=== PATIENT | female | born 1960 | race Caucasian/White ===

== ENCOUNTER 2018-01-09 07:36 | Outpatient (REF) | payer BC, SELFPAY ==
[2018-01-09 13:03] LABS: ALT 67 U/L (12-78); AST 80 U/L (15-37); Albumin 4.2 g/dL (3.4-5.0); Alkaline Phosphatase 73 U/L (46-116); BUN 17 mg/dL (7-18); Bilirubin, Total 1.8 mg/dL (0.2-1.0); CREATININE 0.66 mg/dL (0.55-1.02); Calcium 9.4 mg/dL (8.5-10.1); Chloride 103 mmol/L (98-107); Cholesterol 184 mg/dL (50-200); Glucose 197 mg/dL (70-100); HDL Cholesterol 34 mg/dL (40-60); LDL CHOLESTEROL 117 mg/dL (<100); Sodium 141 mmol/L (136-145); Total Protein 7.2 g/dL (6.4-8.2); Triglyceride 250 mg/dL (30-150)
[2018-01-09 13:16] LABS: Microalb ug/mg Crea 31.5 ug/mg Cr
== END 2018-01-09 07:56 ==
LOC: NCHCN 07:36
PROVIDERS: PCP Nurse Practitioner; Visit Provider Nurse Practitioner
DX: I10 Essential (primary) hypertension (principal); E11.9 Type 2 diabetes mellitus without complications; E78.5 Hyperlipidemia, unspecified
CPT/HCPCS: 80053; 80061; 83721; 82043; 82570

== ENCOUNTER 2018-11-17 01:10 | Outpatient (CLI) | payer BC, SELFPAY ==
--- NOTE | 2018-11-17 13:29 | DI.MAMMO_ITS ---
SYMPTOM/DIAGNOSIS: SCREENING, Z12.39 MAMMOGRAMS: Mammograms were interpreted according to the usual protocol including computer analysis with CAD system, tomosynthesis and C view imaging. The breast tissue is of moderate radiodensity. There is no evidence of a mass. There are no suspicious calcifications and there has been no significant interval change when compared with prior images. SUMMARY: No evidence of malignancy, category 1. Yearly screening mammography is recommended. Breast density, Category B,. SA ASSESSMENT OF FINDINGS: Negative. Category 1. Patient will receive a letter notifying them of these results. BI-RADS category B. There are scattered areas of fibroglandular density.
== END 2018-11-17 01:30 ==
PROVIDERS: PCP Nurse Practitioner; Visit Provider Nurse Practitioner
DX: Z12.31 Encounter for screening mammogram for malignant neoplasm of breast (principal)
CPT/HCPCS: 77063; 77067

== ENCOUNTER 2019-01-10 09:20 | Outpatient (REF) | payer BC, SELFPAY ==
[2019-01-10 13:06] LABS: COMMENT (LAB VIEW ONLY) 118.85 mg/dL; Microalb ug/mg Crea 51.1 ug/mg Cr
[2019-01-10 13:21] LABS: ALT 50 U/L (14-59); AST 56 U/L (15-37); Alkaline Phosphatase 77 U/L (46-116); Anion Gap 10.2 mmol/L (3-11); BUN 12 mg/dL (7-18); Bilirubin, Total 2.6 mg/dL (0.2-1.0); CO2 26.8 mmol/L (21.0-32.0); CREATININE 0.64 mg/dL (0.55-1.02); Calcium 9.2 mg/dL (8.5-10.1); Calculated LDL 118 mg/dL; Chloride 104 mmol/L (98-107); Cholesterol 195 mg/dL (50-200); Glucose 247 mg/dL (70-100); HDL Cholesterol 30 mg/dL (40-60); Sodium 141 mmol/L (136-145); Total Protein 7.2 g/dL (6.4-8.2); Triglyceride 239 mg/dL (30-150)
== END 2019-01-10 09:40 ==
LOC: NCHCN 09:20
PROVIDERS: PCP Nurse Practitioner; Visit Provider Nurse Practitioner
DX: E11.9 Type 2 diabetes mellitus without complications (principal); I10 Essential (primary) hypertension; E78.5 Hyperlipidemia, unspecified
CPT/HCPCS: 80053; 80061; 82043; 82570

== ENCOUNTER 2019-05-03 08:25 | Outpatient (REF) | payer BC, SELFPAY ==
[2019-05-03 12:28] LABS: ALT 53 U/L (14-59); AST 67 U/L (15-37); Albumin 4.1 g/dL (3.4-5.0); Alkaline Phosphatase 83 U/L (46-116); Bilirubin, Direct 0.33 mg/dL (0.00-0.20); Total Protein 7.3 g/dL (6.4-8.2)
[2019-05-03 13:52] LABS: Hemoglobin A1C 7.8 % (3.8-5.6)
== END 2019-05-03 08:45 ==
LOC: NCHCN 08:25
PROVIDERS: PCP Nurse Practitioner; Visit Provider Nurse Practitioner
DX: I10 Essential (primary) hypertension (principal); E11.9 Type 2 diabetes mellitus without complications
CPT/HCPCS: 80076; 83036

== ENCOUNTER 2019-11-14 09:23 | Outpatient (CLI) | payer BC, SELFPAY ==
--- NOTE | 2019-11-16 10:34 | ZIOP_ITS ---
Date of service: 11/16/19 Time of Service: 10:34 ZIO Patch Financial Assistance Specialist Referring Provider:: Hero Indications:: Palpitations Note: This is a 2-week ZIO patch ordered for the indication of palpitations. ?The patient was in normal sinus rhythm for majority recording with an average heart rate of 91 bpm ([phone]) ?Patient had no episodes of supraventricular tachycardia nor ventricular tachycardia. ?There were occasional (2%) premature ventricular contractions. ?There are no episodes of atrial fibrillation, no pauses grade 3 seconds no evidence of high degree heart block.
--- NOTE | 2019-11-16 12:30 | W.HOLTRPT ---
Date of service: 11/16/19 Time of Service: 12:30 Holter Monitor Report Referring Provider:: Sunita Indications:: Palps Holter Monitor Note: Note: This is a 48-hour Holter monitor ordered for the indication of palpitations. ?The patient was in normal sinus rhythm for majority recording with an average heart rate of 91 bpm ([phone]) ?Patient had no episodes of supraventricular tachycardia nor ventricular tachycardia. ?There were occasional (2%) premature ventricular contractions. ?There are no episodes of atrial fibrillation, no pauses grade 3 seconds no evidence of high degree heart block.
== END 2019-11-14 09:43 ==
PROVIDERS: PCP Nurse Practitioner; Visit Provider Nurse Practitioner
DX: R00.2 Palpitations (principal); I49.3 Ventricular premature depolarization
CPT/HCPCS: 93225

== ENCOUNTER 2019-11-16 08:52 | Outpatient (CLI) | payer BC, SELFPAY | END 2019-11-16 09:12 | PROVIDERS: PCP Nurse Practitioner; Visit Provider Nurse Practitioner | DX: R00.2 Palpitations (principal) | CPT/HCPCS: 93226 ==

== ENCOUNTER 2019-11-19 01:16 | Outpatient (CLI) | payer BC, SELFPAY ==
--- NOTE | 2019-11-19 10:01 | DI.RAD_ITS ---
EXAM: XR CHEST 2V PA LATERAL CLINICAL HISTORY: COUGH,R05 TECHNIQUE: COMPARISON: CR ABD FLAT UPRIGHT PA CHEST from 08/17/2013 CR ABD FLAT UPRIGHT PA CHEST from 04/06/2014 FINDINGS: Heart is not enlarged. The danny appear enlarged bilaterally, this is a new finding in comparison wit h prior chest film of August 2013. The lungs are clear. No pleural effusion seen. IMPRESSION: Findings suggesting bilateral hilar enlargement, this could be on the basis of adenopathy versus pulm onary arterial enlargement. Additional evaluation with contrast-enhanced CT suggested to evaluate th is finding. RADIATION DOSE DELIVERED: Total DLP
== END 2019-11-19 01:36 ==
PROVIDERS: PCP Nurse Practitioner; Visit Provider Nurse Practitioner
DX: R05 Cough (principal)
CPT/HCPCS: 71046

== ENCOUNTER 2019-12-06 04:02 | Outpatient (CLI) | payer BC, SELFPAY ==
--- NOTE | 2019-12-27 08:27 | W.ZIOMONITOR ---
Date of service: 12/27/19 Time of Service: 08:27 14 Day Chairman Of The Board Referring Provider:: Sunita Indications:: palps Note: This is a 14-day remote monitor ordered for indication of palpitations. ?Patient was in normal sinus rhythm for the majority of the recording with an average heart rate of 94 bpm. ?There were no episodes of supraventricular tachycardia nor any episodes of ventricular tachycardia. ?There were occasional (2%) ventricular ectopic beats. ?There were no episodes of atrial fibrillation, no pauses greater than 3 seconds and no evidence of high degree heart block. ?There were over 60 patient triggered events all of which corresponded to sinus rhythm and sinus tachycardia and an occasional singular PVC.
== END 2019-12-06 04:22 ==
PROVIDERS: PCP Nurse Practitioner; Visit Provider Nurse Practitioner
DX: R00.2 Palpitations (principal)
CPT/HCPCS: 0296T

== ENCOUNTER 2020-01-07 02:17 | Outpatient (CLI) | payer BC, SELFPAY ==
--- NOTE | 2020-01-07 | DI.CT_ITS ---
EXAM: CT CHEST W CLINICAL HISTORY: F/U ABNL CHEST XR,R91.8,COUGH,BILAT HILAR ENLARGEMENT TECHNIQUE: Imaging Protocol: Axial computed tomography images with coronal and sagittal reformatted images were created and reviewed CONTRAST MATERIAL: Intravenous: Omnipaque 350 Contrast volume:70 mL. COMPARISON: CR XR CHEST 2V PA LATERAL from 11/19/2019 FINDINGS: Tracheobronchial tree: Patent where visualized. Mediastinum and Darlyn: No dominant adenopathy or fluid collection. Small hiatal hernia. There is an enlarged heterogeneous right lobe of the thyroid gland. Multiple hypodense masses are seen in both l obes of the thyroid gland. Nonemergent thyroid ultrasound is recommended for further evaluation. Pulmonary parenchyma: No consolidation or dominant measurable mass. No architectural distortion. Pleura: No effusion or pneumothorax. Heart: Cardiomegaly. No coronary artery calcifications are seen. No pericardial effusion. Mild aort ic valvular calcification. Aorta: Thoracic aorta non-dilated. Atherosclerosis. Pulmonary arteries: There is prominence of the pulmonary arteries raising the question of pulmonary a rtery hypertension. Upper abdomen: Hepatic steatosis. Status post cholecystectomy. No biliary ductal dilatation. Non- obstructing 3 mm stone in the superior pole of the left kidney. Lymph nodes: Within normal limits. Bones: Right convex scoliosis. Hemangioma in the T10 vertebral body. Soft tissues: Unremarkable. IMPRESSION: 1. Enlarged pulmonary arteries suspicious for pulmonary artery hypertension. 2. No evidence of thoracic adenopathy. 3. Enlarged heterogeneous thyroid gland. Nonemergent thyroid ultrasound is recommended for further e valuation. 4. Hepatic steatosis. Left nephrolithiasis. RADIATION DOSE DELIVERED: 337.71mGy.cm Total DLP DATA REPOSITORY: All CT scans at this facility are submitted to the National Radiology Data Registry (NRDR) Dose Index Registry (DIR) with the [employer] (ACR). RADIATION OPTIMIZATION: All CT scans at this facility use at least one of these dose optimization te chniques: automated exposure control; mA and/or kV adjustment per patient size (includes targeted exa ms where dose is matched to clinical indication); or iterative reconstruction.
[2020-01-07 13:10] LABS: CREATININE 0.73 mg/dL (0.55-1.02)
[2020-01-07] MEDS: Omnipaque 350 MG/ML 100 ML BTL IV (13:23)
== END 2020-01-07 02:37 ==
PROVIDERS: PCP Nurse Practitioner; Visit Provider Nurse Practitioner
DX: N25.9 Disorder resulting from impaired renal tubular function, unspecified (principal); K76.0 Fatty (change of) liver, not elsewhere classified; E04.9 Nontoxic goiter, unspecified; N20.0 Calculus of kidney; R91.8 Other nonspecific abnormal finding of lung field
CPT/HCPCS: 71260; 82565; J3490

== ENCOUNTER 2020-03-05 01:23 | Outpatient (CLI) | payer BC, SELFPAY ==
--- NOTE | 2020-03-05 | DI.US_ITS ---
EXAM: US THYROID CLINICAL HISTORY: ENLARGED THYROID,E04.9 TECHNIQUE: Ultrasound performed using standard protocol. COMPARISON: US SONOHYSTERO/HYSTOGRAM W BIOPSY from 09/19/2015 FINDINGS: Thyroid ultrasound was performed according to the usual protocol. Thyroid gland is markedly heteroge neous. Right thyroid lobe measures 56 x 22 x 25 millimeters and left lobe measures 41 x 13 x 13 mill imeters. There are multiple bilateral thyroid cysts. There is a 41 x 25 x 15 millimeter in diameter this solid mass the right thyroid lobe upper pole, this is isoechoic and wider than tall with smooth margins and no echogenic foci. This is a TI-RADS TR 3 lesion, fine needle aspiration recommended fo r lesions greater than 2.5 cm in diameter. No additional large suspicious lesion identified. Multiple small TR 3 lesions are identified, none g reater than 12 millimeters in diameter. IMPRESSION: Multinodular goiter, dominant mildly suspicious lesion is identified in the upper pole of the right t hyroid lobe, fine needle aspiration recommended. This is a TI-RADS TR 3 lesion measuring 4.1 cm in g reatest diameter. DATA REPOSITORY:
--- NOTE | 2020-03-05 10:11 | DI.US_ITS ---
APPROVED REPORT EXAM: Comprehensive 2D, Doppler, and color-flow Echocardiogram Patient Location: Out-Patient Library Cataloging Technician: Sherry Recinos RDCS (AE) Indications: Pulmonary Hypertension Other Information Study Quality: Good Conclusion Normal left ventricular chamber size and wall thickness. Estimated ejection fraction is 60%. Wall m otion is normal Normal right ventricular size and systolic function Both atria are normal in size There are no structural valvular abnormalities Trace mitral, tricuspid, and pulmonic regurgitation Estimated right ventricular systolic pressure is normal. There is no evidence of pulmonary hypertens ion Wall motion Left Ventricle The left ventricle is normal size. The left ventricular systolic function is normal. The left ventric ular ejection fraction is within the normal range. There is normal left ventricular wall thickness. T here is normal LV segmental wall motion. There is no ventricular septal defect visualized. LVEF is 60 %. Right Ventricle The right ventricle is normal size. The right ventricular systolic function is normal. The RVSP is 25 .8 mmHg. Atria The left atrium size is normal. The right atrium size is normal. The interatrial septum is intact wit h no evidence for an atrial septal defect. Aortic Valve The aortic valve is normal in structure. Aortic valve is trileaflet. There is no aortic valvular sten osis. No aortic regurgitation is present. Mitral Valve The mitral valve is normal in structure. No evidence of mitral valve stenosis. Trace mitral regurgita tion. Tricuspid Valve The tricuspid valve is normal in structure. There is no tricuspid valve stenosis. Trace tricuspid reg urgitation. Pulmonic Valve The pulmonary valve is normal in structure. There is no pulmonic valvular stenosis. Trace pulmonic re gurgitation. Great Vessels The aortic root is normal in size. The ascending aorta is normal in size. Aortic arch is normal in ca liber. IVC is normal in size and collapses >50% with inspiration. Pericardium There is no pericardial effusion. 2D Dimensions IVSD d PLAX 0.95 cm F: 0.6-1.0 LV Vol A2C d MOD 87.7 mL LVPW d PLAX 0.94 cm F: 0.6 - 1.0 LV Vol A4C d MOD 91.9 mL LVID d PLAX 4.25 cm F: 3.8 - 5.2 LA vol/ BSA A2C s A-L 21.1 mL/m2 LVDs 2.85 cm F: 2.2 - 3.5 LA vol/ BSA A4C s A-L 21.9 mL/m2 Ao Root d 2.52 cm F: 2.7 - 3.3 LA Vol/ BSA Biplane s A-L 21.5 mL/m2 RA Area A4C 11.11 cm2 LA Area A4C s MOD 13.85 cm2 RA Vol/ BSA A4C s A-L 15.7 mL/m2 LA Area A2C s MOD 13.55 cm2 Ao Asc Diam d 2.82 cm F: 2.3 - 3.1 LV EF A4C MOD 60.2 % LV EF Teichholz 61.3 % LV EF A2C MOD 59.2 % LVEF (Bridges's) 59.66 % F: 54 - 74 LV EF Biplane MOD 59.7 % LV Volume 73.50 mL F: 46 - 106 SV 53.50 mL LV Volume Index 47.11 mL/m2 F: 29 - 61 SV Index 34.20 mL/m2 LV Vol Biplane MOD 89.7 mL FS 32.55 % M-Mode TAPSE 2.62 cm (M/F) >1.7 LV Diastology MV E' medial 0.071 (>0.07 m/s) E/A Ratio 1.2 LV E/e MED 13.85 (<14) MV E Vmax 0.99 (0.4-1.3 m/s) MV E' lateral 0.107 (>0.1 m/s) MV A Vmax 0.85 (0.4-1.3 m/s) LV E/e LAT 9.30 (<14) MV E/A Ratio 1.11 MV E/E' medial 13.89 MV E/E' lateral 9.31 Aortic Valve LVOT Area 3.14 cm2 AoV Area Vmax 2.23 cm2 LVOT Vmax 0.97 m/s AoV Area/ BSA (Vmax) 1.43 cm2/m2 LVOT Mean Sid. 0.67 m/s POLI Mean Sid. 2.07 cm2 LVOT Peak Grad 3.7 mmHg POLI Mean Sid. Index 1.33 cm2/m2 LVOT Mean Grad 2.1 mmHg LVOT VTI 0.229 m LVOT Diam s 1.95 cm AoV Vmax 1.36 m/s Velocity Ratio 0.71 AoV Mean Sid. 1.01 m/s AoV Peak Grad 7.4 mmHg LVOT SV 71.93 mL AoV Mean Grad 4.5 mmHg AoV VTI 0.317 m AoV Area VTI 2.27 cm2 AoV Area/ BSA (VTI) 1.45 cm/m2 Mitral Valve MV DT 188 (160-240 msec) MV PHT 54 msec MV Area PHT 4.04 cm2 MV VTI 0.286 m MV VTI Annulus 0.280 m MV Area VTI 2.46 (4.0-6.0 cm2) Pulmonary Valve PV Vmax 0.79 (0.5-1.5 m/s) RVOT Peak Gr. 1.38 mmHg PV Peak Grad 2.5 mmHg RVOT Mean Gr. 0.70 mmHg PV Mean Grad 1.4 mmHg RVOT VTI 0.149 m PV VTI 0.190 m RVOT Vmax 0.59 m/s Tricuspid Valve TR Peak Grad 22.7 mmHg TR Vmax 2.39 m/s RA Pressure 3.00 mmHg RVSP (TR) 25.8 mmHg
== END 2020-03-05 01:43 ==
PROVIDERS: PCP Nurse Practitioner; Visit Provider Nurse Practitioner
DX: I08.1 Rheumatic disorders of both mitral and tricuspid valves (principal); E04.2 Nontoxic multinodular goiter
CPT/HCPCS: 76536; 93306

== ENCOUNTER 2020-04-10 15:26 | Outpatient (REF) | payer BC, SELFPAY ==
[2020-04-10 14:00] LABS: ALT 77 U/L (14-59); AST 82 U/L (15-37); Albumin 3.9 g/dL (3.4-5.0); Alkaline Phosphatase 94 U/L (46-116); Anion Gap 11.4 mmol/L (3-11); BUN 18 mg/dL (7-18); Bilirubin, Total 3.3 mg/dL (0.2-1.0); CO2 27.6 mmol/L (21.0-32.0); CREATININE 0.8 mg/dL (0.55-1.02); Calcium 9.5 mg/dL (8.5-10.1); Calculated LDL 135 mg/dL (<100); Chloride 100 mmol/L (98-107); Cholesterol 218 mg/dL (<200); Glucose 407 mg/dL (74-106); HDL Cholesterol 35 mg/dL (40-60); Potassium 4.4 mmol/L (3.5-5.1); Sodium 139 mmol/L (136-145); TSH (W/Ref FT4) 1.49 uIU/mL (0.36-3.74); Total Protein 7.4 g/dL (6.4-8.2); Triglyceride 240 mg/dL (<150)
[2020-04-10 14:41] LABS: COMMENT (LAB VIEW ONLY) 65.31 mg/dL; Microalb ug/mg Crea 20.5 ug/mg Cr
== END 2020-04-10 15:27 | disposition home or self-care (01) ==
LOC: NCHCN 15:26
PROVIDERS: PCP Nurse Practitioner; Visit Provider Nurse Practitioner
DX: E11.9 Type 2 diabetes mellitus without complications (principal); K76.0 Fatty (change of) liver, not elsewhere classified; E04.9 Nontoxic goiter, unspecified; E78.5 Hyperlipidemia, unspecified; I10 Essential (primary) hypertension
CPT/HCPCS: 80053; 80061; 82043; 82570; 84443

== ENCOUNTER 2020-05-05 02:14 | Outpatient (CLI) | payer BC, SELFPAY ==
[2020-05-05] MEDS: Normal Saline Flush 10 ML SYR IVP (10:46)
[2020-05-05] MEDS: Gadoterate meglumine 20 ML VIAL 12 ML IVP (10:47)
--- NOTE | 2020-05-05 11:05 | DI.MRI_ITS ---
EXAM: MR PELVIS WO/W CLINICAL HISTORY: COCCYDYNIA,M53.3,? FX OR NEW LESIONS,H/O ENDOMETRIAL CA AND RADIATION TECHNIQUE: Multiplanar multisequence MRI of Pelvis was performed. CONTRAST MATERIAL: IV Contrast: 12 mL of Dotarem contrast administered. COMPARISON: CT ABD PELVIS WITH CONTRAST from 03/26/2017 FINDINGS: Bones: There is no fracture or contusion pattern. No significant joint effusion or labral injury is present. There is a 2.3 x 2 cm lesion in the right S2 segment of the sacrum. This area shows mild en hancement following contrast administration. There is otherwise normal marrow signal. The SI joints and symphysis pubis are well maintained. Musculotendinous structures: Musculotendinous structures demonstrate no abnormality. Intrapelvic str uctures demonstrate no significant abnormality. Soft tissues: There are 2 enhancing masses in the left pelvis. The largest measures 2.7 cm transvers e by 5.0 cm AP by 5.0 cm craniocaudad. It appears to compress and displace the obturator internus mu scle. The muscle shows normal signal and size. The 2nd lesion is posterior and slightly superior, c loser to the sciatic notch and measures 2.5 x 2.1 cm. It appears to displace and compress the adjace nt nerves. IMPRESSION: 1. Two enhancing lesions in the left pelvis as described above. Findings raise a question of metasta tic disease. Adenopathy should also be considered. CT scan of the abdomen and pelvis should be cons idered to evaluate for extent of disease. 2. A 2.3 x 2 cm lesion in the S2 segment of the sacrum suspicious for metastatic deposit. A whole-juan dy bone scan should be considered for further evaluation. DATA REPOSITORY:
== END 2020-05-05 02:34 ==
PROVIDERS: PCP Nurse Practitioner; Visit Provider Nurse Practitioner
DX: M53.3 Sacrococcygeal disorders, not elsewhere classified (principal); R93.5 Abnormal findings on diagnostic imaging of other abdominal regions, including retroperitoneum; Z85.42 Personal history of malignant neoplasm of other parts of uterus
CPT/HCPCS: 72197

== ENCOUNTER 2020-09-25 23:40 | Emergency (ER) | payer BC, SELFPAY ==
[2020-09-25 23:46] VITALS: BP 174/77; PULSE 95; RESP 18; TEMP 36.6; O2SAT 96
--- NOTE | 2020-09-25 23:55 | ED.GENADUL_ITS ---
Discharge Plan Disposition Patient Disposition: HOME Condition: Good Discharge Details Clinical Impression: Sacral pain Primary Care Provider: Marla Dorsey ED Provider: Jhoan Charles Home Meds and New Rx's Prescriptions: Continued metoprolol succinate 50 mg tablet extended release 24 hr 50 mg PO DAILY RF: 0 Januvia 25 mg tablet 25 mg PO DAILY RF: 0 methylphenidate HCl [Concerta] 18 mg tablet extended release 24hr 18 mg PO DAILY RF: 0 lisinopril 10 mg tablet 10 mg PO DAILY RF: 0 pravastatin 20 mg tablet 20 mg PO QHS RF: 0 lorazepam 0.5 MG tablet 0.5 mg PO PRN PRNRF: 0 hydrocodone-acetaminophen [Vicodin] 1 EACH tablet 1 tab PO PRN PRNRF: 0 Discharge Instructions Additional Instructions: At this time we have elected to hold off on imaging and focus on your pain. Please take the [place] pills as needed for pain. Please follow-up closely with your family doctor and oncologist for continued management of your malignancy and pain. If you notice any worsening of your symptoms, or any new symptoms such as vomiting, diarrhea, fever, chills, shortness of breath, chest pain, numbness, weakness, or fainting , please return immediately to the emergency department for reevaluation. Please follow up with your primary care provider as soon as possible for reassessment and reevaluation. As always, it was a pleasure participating in your medical care today. Referrals: Marla Dorsey [Primary Care Provider] - Medical Decision Making 60-year-old female with a past medical history of pelvic malignancy, GERD, endometrial cancer, hyperlipidemia, hypertension, presents today for sacral pain. Patient states that she has chronic sacral pain secondary to the nature of the malignancy. However she states that over the last 12 hours it has become notably worse. She does use narcotics to manage her pain usually, however she is out of her current prescription, and has not been able to manage it with Tylenol or Motrin. She denies any rectal discharge, any fever or chills, any numbness tingling or weakness. She does have radiation therapy upcoming shortly. She denies any other complaints at this time. Symptoms are made worse with sitting on her buttock. Symptoms are not made worse with bowel or bladder movements. Physical exam demonstrates no acute lesions, no reproducible tenderness on the sacrum, no rectal abnormality. No signs of cauda equina syndrome whatsoever. No significant abdominal tenderness to suggest an acute surgical abdomen. I did discuss imaging options for the patient and at this time through notable discussion, weighing the risks and benefits, and a shared decision making process the patient has refused imaging at this time. Patient is of an appropriate age to make decisions. The patient is of sound mind, appears clinically sober, and has capacity to make decisions by my clinical exam. Respecting the patient's wishes we will hold off on imaging, as both she and her significant other specifically feel that this is an acute exacerbation of chronic pain and not a new etiology requiring further work-up. Patient states specifically that her primary goal is just for pain treatment for this evening so that she can sleep and then follow-up with her PCP tomorrow for a new medication prescription for pain. Respecting the patient's wishes we will move forward with pain control. We will give a dose of IM morphine, and 4 [place] tablets to go home with. In terms symptoms at this time are inconsistent with an acute surgical abdominal pathology, rectal prolapse, perirectal abscess, UTI. Discussed red flags which to return. I have extensively reviewed the treatment plan and discharge instructions with the patient and their family. I have addressed all patient concerns at this time. The patient and family was made aware of what symptoms to monitor for that would [facility] Discussed the plan with the patient and family, they demonstrate verbal understanding and agreement with our assessment and plan at this time. The documentation in this chart was dictated using [employer] dictation software. Please excuse any dictation errors. HPI General Date/Time Provider Initiated Documentation: 09/25/20 23:42 . HPI Narrative: 60-year-old female with a past medical history of pelvic malignancy, GERD, endometrial cancer, hyperlipidemia, hypertension, presents today for sacral pain. Patient states that she has chronic sacral pain secondary to the nature of the malignancy. However she states that over the last 12 hours it has become notably worse. She does use narcotics to manage her pain usually, however she is out of her current prescription, and has not been able to manage it with Tylenol or Motrin. She denies any rectal discharge, any fever or chills, any numbness tingling or weakness. She does have radiation therapy upcoming shortly. She denies any other complaints at this time. Symptoms are made worse with sitting on her buttock. Symptoms are not made worse with bowel or bladder movements. Related Data Home Medications Medication Instructions Recorded Confirmed hydrocodone-acetaminophen [Vicodin] 1 tab PO PRN PRN 06/25/16 08/20/19 lorazepam 0.5 mg PO PRN PRN 06/25/16 08/20/19 lisinopril 10 mg tablet 10 mg PO DAILY 05/23/19 08/20/19 methylphenidate HCl 18 mg 18 mg PO DAILY 05/23/19 08/20/19 tablet,extended release 24 hr metoprolol succinate 50 mg 50 mg PO DAILY 05/23/19 08/20/19 tablet,extended release 24 hr pravastatin 20 mg tablet 20 mg PO QHS 05/23/19 08/20/19 sitagliptin 25 mg tablet 25 mg PO DAILY 05/23/19 08/20/19 Allergies Allergy/AdvReac Type Severity Reaction Status Date / Time Sulfa (Sulfonamide Allergy Severe Anaphylaxsi Unverified 09/24/19 10:47 Antibiotics) s fluconazole [From Diflucan] Allergy Unverified 09/24/19 10:47 Penicillins AdvReac Severe severe Unverified 09/24/19 10:47 yeast infections metronidazole AdvReac Mild Skin Rash Unverified 09/24/19 10:47 venlafaxine AdvReac Unknown Unverified 09/24/19 10:47 General Stated Complaint: Orthopedic CHANELLE: 4 Review of Systems All systems reviewed & are unremarkable except as noted in HPI and below PFSH Medical History ADD (attention deficit disorder) Anxiety Chronic neck pain Cubital tunnel syndrome on left De Quervain's tenosynovitis, right Injection: 09/24/2019 Diabetes Endometrial adenocarcinoma Endometrial cancer Stage 1B. Grade2. S/P RALH, BSO, sentinel lymph node bx. 12/2015. Will have cuff radiation thru [facility]. GERD (gastroesophageal reflux disease) Glucose intolerance (impaired glucose tolerance) History of IBS Hx of diverticulitis of colon Hyperlipidemia Hypertension Low back pain Migraine Osteoarthritis Shoulder impingement Skin lesion of face Surgical History Cholecystectomy Hysterectomy, Laproscopic (12/30/15) RALH, BSO, [place] lymph node bx. Pt will have cuff brachytherapy. Ligation of fallopian tube Family History Grandmother Essential hypertension Social History Smoking/Tobacco Use Status: Never Smoking risk assessment performed?: Yes Alcohol Intake: current Alcohol Intake frequency: a few times a month Drug use: Never Household members: spouse Housing: house Number of Children: 4 current occupation: Therapist Pets and animals: No What is your relationship status?: Panel score (0-1 are the most socially isolated patients): 1 What type of physical activity do you participate in: walking Seatbelt use: always Do you feel safe in your relationship?: Yes Exam Narrative Exam Narrative: 1.Const: Well-nourished, Well-developed, appearing stated age 2.Eyes: PERRL, no conjunctival injection, and symmetrical lids. 3.ENT: Atraumatic external nose and ears. Moist MM. Neck: Symmetric, trachea midline, No thyromegaly. 4.CVS: +S1/S2, No murmurs or gallops. Peripheral pulses 2+ and equal in all extremities. Brisk capillary refill in all extremities. 5.RESP: Unlabored respiratory effort. Clear to auscultation bilaterally. No wheezes rales or rhonchi 6.GI: Soft, Nontender/Nondistended, No hepatosplenomegaly. No guarding or rebound. 7.MSK: Normocephalic/Atraumatic, Extremities w/o deformity or ttp No cyanosis or clubbing, Normal movement of all extremities. Palpation of the rectum demonstrates no rectal tenderness. No mass redness or swelling in the rectal region. Palpation of the sacrum demonstrates no focal tenderness. No skin lesions. No bleeding or ulcer. No midline tenderness to palpation over the LS spine. Normal ROM in flexion, extension, side bend, and rotation. Patient has +5 out of 5 strength in the lower extremities in dorsiflexion and plantarflexion, knee flexion and extension, hip flexion and extension. Normal strength for dorsiflexion and plantar flexion of the great toe bilaterally. There is +2 over 2 dorsalis pedis pulses bilaterally. There is normal sensation to the skin with light touch at the foot, knee, and hip. Normal saddle sensation. Good sensation over the deep sural nerve area bilaterally. Rectal exam is noted above. 8.Skin: Warm, Dry. No rashes or lesions. 9.Neuro: underwriting account representative II-XII grossly intact. Sensation grossly intact, no focal neurologic deficits. 10.Psych: (AAO) x3. Appropriate mood and affect Course Vital Signs Vital signs: Vital Signs Temperature 36.6 C 09/25/20 23:46 Pulse 95 H 09/25/20 23:46 Respiratory Rate 18 09/25/20 23:46 Blood Pressure 174/77 H 09/25/20 23:46 Pulse Oximetry 96 09/25/20 23:46 Temperature 36.6 C 09/25/20 23:46 Temperature Source Temporal Artery Scan 09/25/20 23:46 Pulse 95 H 09/25/20 23:46 Respiratory Rate 18 09/25/20 23:46 Respiratory Effort Non-Labored 09/25/20 23:52 Blood Pressure 174/77 H 09/25/20 23:46 Pulse Oximetry 96 09/25/20 23:46 Oxygen Delivery Method Room Air 09/25/20 23:46 Oxygen Flow Rate 0 09/25/20 23:46 Pain Level 8 09/25/20 23:53
== END 2020-09-26 00:03 | disposition home or self-care (01) ==
PROVIDERS: Emergency Provider Student in an Organized Health Care Education/Training Program; PCP Nurse Practitioner
DX: M53.3 Sacrococcygeal disorders, not elsewhere classified (principal); G89.29 Other chronic pain
CPT/HCPCS: 96372; 99284; 99283

== ENCOUNTER 2020-09-29 12:46 | Outpatient (REF) | payer BC, SELFPAY ==
[2020-09-29 14:41] LABS: Bilirubin Negative (Negative); Blood Small (Negative); Clarity Cloudy (Clear); Glucose 500 mg/dL (Negative); Ketones 15 mg/dL (Negative); Leukocyte Esterase Negative (Negative); Nitrite Positive (Negative); Specific Gravity >= 1.030 (1.005-1.025); Urobilinogen 0.2 EU/dL (Up TO 0.2); pH 5.5 (5-8)
[2020-09-29 14:52] LABS: Bacteria Many HPF (Negative); C & S Indicated? Yes; Casts Negative LPF (Negative); Crystals Negative HPF (Negative); Epithelial Cells Few HPF (Negative); Mucus Negative (Negative)
== END 2020-09-29 12:47 | disposition home or self-care (01) ==
LOC: LBN 12:46
PROVIDERS: PCP Nurse Practitioner; Visit Provider Radiology Radiation Oncology
DX: R30.0 Dysuria (principal)
CPT/HCPCS: 87077; 81003; 81015; 87086; 87186

== ENCOUNTER 2020-09-30 11:53 | Outpatient (CLI) | payer BC, SELFPAY ==
[2020-09-30 17:13] LABS: CREATININE 0.5 mg/dL (0.55-1.02)
== END 2020-09-30 11:54 | disposition home or self-care (01) ==
LOC: LBO 11:54
PROVIDERS: PCP Nurse Practitioner; Visit Provider Radiology Radiation Oncology
DX: C54.1 Malignant neoplasm of endometrium (principal)
CPT/HCPCS: 36415; 82565

== ENCOUNTER 2020-10-07 21:48 | Outpatient (REF) | payer BC, SELFPAY ==
[2020-10-07 22:36] LABS: CREATININE 0.5 mg/dL (0.55-1.02)
== END 2020-10-07 21:49 | disposition home or self-care (01) ==
LOC: LBO 21:48
PROVIDERS: PCP Nurse Practitioner; Visit Provider Radiology Radiation Oncology
DX: C54.1 Malignant neoplasm of endometrium (principal)
CPT/HCPCS: 36415; 82565

== ENCOUNTER 2020-11-03 13:49 | Outpatient (CLI) | payer BC, SELFPAY ==
[2020-11-03 12:21] LABS: Abs Immature Grans 0.03 10^3/uL (0.0-0.06); Absolute Basophil Count 0.02 10^3/uL (0.0-0.2); Absolute Eosinophil Count 0.14 10^3/uL (0.0-0.7); Absolute Lymphocyte Count 1.08 10^3/uL (1.2-3.4); Absolute Monocyte Count 0.47 10^3/uL (0.1-0.8); Absolute Neutrophil Count 2.53 10^3/uL (1.2-6.7); Basophils % 0.5; Eosinophils % 3.3; HCT 39.2 % (36.0-46.0); HGB 13.1 g/dL (11.2-15.7); Immature Grans % 0.7; Lymphocytes % 25.3; MCH 28.9 pg (27.0-33.0); MCHC 33.4 % (32.0-36.0); MCV 86.3 fL (80-95); MPV 10.8 fL (8.0-11.0); Neutrophils % 59.2; Nucleated RBC 0 %; Platelet Count 111 10^3/uL (130-400); RBC 4.54 10^6/uL (3.93-5.22); RDW 13.9 % (11.7-14.6); RDW-SD 43.7 fL; WBC 4.27 10^3/uL (4.4-10.8)
== END 2020-11-03 13:50 | disposition home or self-care (01) ==
LOC: LOS 13:50
PROVIDERS: PCP Nurse Practitioner; Visit Provider Radiology Radiation Oncology
DX: C54.1 Malignant neoplasm of endometrium (principal)
CPT/HCPCS: 36415; 85025

== ENCOUNTER 2020-11-05 12:13 | Emergency (ER) | payer BC, SELFPAY ==
[2020-11-05 12:18] VITALS: BP 155/64; PULSE 81; RESP 18; TEMP 36.6; O2SAT 99
--- NOTE | 2020-11-05 12:30 | DI.CT_ITS ---
Exam(s) CT ABDOMEN PELVIS W EXAM: CT ABDOMEN PELVIS W CLINICAL HISTORY: Left side abd pain, hx of diverticulitis TECHNIQUE: Imaging Protocol: Axial computed tomography images with coronal and sagittal reformatted images were created and reviewed CONTRAST MATERIAL: Intravenous: Omnipaque 350 Contrast volume:84 mL Oral: Yes COMPARISON: CT ABD PELVIS WITH CONTRAST from 03/26/2017 FINDINGS: ABDOMEN: Lung Bases: Scarring in the left lung base. Liver: Normal density. No measurable mass. The liver measures 18 cm long. Portal, Superior Mesenteric, and Splenic Veins: Unremarkable. Gallbladder and Biliary Tract: Status post cholecystectomy. No significant biliary ductal dilatation . Pancreas: Normal density, no abnormal calcifications or inflammatory process. Spleen: Normal. Adrenals: No masses seen. Kidneys: Normal size, contour and axis. Left nephrolithiasis. No hydronephrosis. No masses seen. Abdominal Aorta: Abdominal portion non-dilated. Atherosclerosis. Bowel: No evidence of obstruction. Extensive diverticulosis. There is mild diffuse bowel wall thick ening from the transverse colon into the sigmoid colon. There may be mild in pericolonic inflammator y changes at the junction of the descending and sigmoid colon. No evidence of appendicitis. Peritoneal Cavity: No ascites, collection or mesenteric inflammatory response. No free air. Lymph Nodes: Within normal limits. Bones: Within normal limits for the patient's age. Hemangiomas are seen involving the T10, L1 and L4 vertebral bodies. Soft Tissues: Unremarkable. PELVIS: Bladder: Symmetric distention, no gross wall thickening. Reproductive Organs: Unremarkable as visualized. Lymph Nodes: Within normal limits. Bones: Within normal limits for the patient's age. IMPRESSION: 1. There is extensive diverticulosis. There is mild diffuse bowel wall thickening from the transverse colon to the sigmoid colon which may be chronic. 2. There does appear to be mild pericolonic inflammatory changes at the junction of the descending an d sigmoid colon and a mild acute diverticulitis cannot be excluded. 3. No abscess or free air. 4. Results of this exam have been verbally communicated with provider. RADIATION DOSE DELIVERED: 767.38mGy.cm Total DLP DATA REPOSITORY: All CT scans at this facility are submitted to the National Radiology Data Registry (NRDR) Dose Index Registry (DIR) with the [employer] (A[employer]). RADIATION OPTIMIZATION: All CT scans at this facility use at least one of these dose optimization te chniques: automated exposure control; mA and/or kV adjustment per patient size (includes targeted exa ms where dose is matched to clinical indication); or iterative reconstruction.
--- NOTE | 2020-11-05 12:36 | W.ED.GENAD ---
Discharge Plan Disposition Patient Disposition: HOME Condition: Stable Discharge Details Clinical Impression: Diverticulitis Primary Care Provider: Marla Dorsey ED Provider: Stephenie Lamar Home Meds and New Rx's Prescriptions: New ciprofloxacin HCl 500 mg tablet 500 mg PO BID 10 Days Qty: 20 RF: 0 Continued metoprolol succinate 50 mg tablet extended release 24 hr 50 mg PO DAILY RF: 0 Januvia 25 mg tablet 25 mg PO DAILY RF: 0 methylphenidate HCl [Concerta] 18 mg tablet extended release 24hr 18 mg PO DAILY RF: 0 lisinopril 10 mg tablet 10 mg PO DAILY RF: 0 pravastatin 20 mg tablet 20 mg PO QHS RF: 0 lorazepam 0.5 MG tablet 0.5 mg PO PRN PRNRF: 0 hydrocodone-acetaminophen [Vicodin] 1 EACH tablet 1 tab PO PRN PRNRF: 0 atenolol 25 mg tablet 40 mg PO DAILY RF: 0 gabapentin 100 mg capsule 100 mg PO PRN PRNRF: 0 Discharge Instructions Instructions: Diverticulitis (ED), Diverticulitis Diet (ED) Additional Instructions: Take antibiotics twice daily as directed for 10 days. Follow up with primary care provider in 3-5 days. Return to ED sooner if any worsening or concerns. Increase oral fluids. Please take Tylenol or Ibuprofen with food every 4-6 hours as needed for pain and swelling. Please return to the ER or be seen sooner if any vomiting unable to keep the antibiotics down any fever chills or worsening in any way. Referrals: Marla Dorsey [Primary Care Provider] - Medical Decision Making 60-year-old female presents to the ER chief complaint of left upper quadrant abdominal pain which began last night. Patient reports intermittent and crampy in nature. Associated with loose stools. Does have a history of uterine cancer which she is receiving radiation treatment for. She denies any fever chills no vomiting. Does endorse some nausea. Denies any bloody stools. Does have a history of diverticulitis and states that this pain feels similar. Patient has a past medical history of hypertension, high cholesterol, anxiety, GERD, surgical history includes cholecystectomy, hysterectomy tubal ligation. EXAM: CT ABDOMEN PELVIS W CLINICAL HISTORY: Left side abd pain, hx of diverticulitis TECHNIQUE: Imaging Protocol: Axial computed tomography images with coronal and sagittal reformatted images were created and reviewed CONTRAST MATERIAL: Intravenous: Omnipaque 350 Contrast volume:84 mL Oral: Yes COMPARISON: CT ABD PELVIS WITH CONTRAST from 03/26/2017 FINDINGS: ABDOMEN: Lung Bases: Scarring in the left lung base. Liver: Normal density. No measurable mass. The liver measures 18 cm long. Portal, Superior Mesenteric, and Splenic Veins: Unremarkable. Gallbladder and Biliary Tract: Status post cholecystectomy. No significant biliary ductal dilatation. Pancreas: Normal density, no abnormal calcifications or inflammatory process. Spleen: Normal. Adrenals: No masses seen. Kidneys: Normal size, contour and axis. Left nephrolithiasis. No hydronephrosis. No masses seen. Abdominal Aorta: Abdominal portion non-dilated. Atherosclerosis. Bowel: No evidence of obstruction. Extensive diverticulosis. There is mild diffuse bowel wall thickening from the transverse colon into the sigmoid colon. There may be mild in pericolonic inflammatory changes at the junction of the descending and sigmoid colon. No evidence of appendicitis. Peritoneal Cavity: No ascites, collection or mesenteric inflammatory response. No free air. Lymph Nodes: Within normal limits. Bones: Within normal limits for the patient's age. Hemangiomas are seen involving the T10, L1 and L4 vertebral bodies. Soft Tissues: Unremarkable. PELVIS: Bladder: Symmetric distention, no gross wall thickening. Reproductive Organs: Unremarkable as visualized. Lymph Nodes: Within normal limits. Bones: Within normal limits for the patient's age. IMPRESSION: 1. There is extensive diverticulosis. There is mild diffuse bowel wall thickening from the transverse colon to the sigmoid colon which may be chronic. 2. There does appear to be mild pericolonic inflammatory changes at the junction of the descending and sigmoid colon and a mild acute diverticulitis cannot be excluded. 3. No abscess or free air. 4. Results of this exam have been verbally communicated with provider. CBC largely within normal limits, CMP shows magnesium 1.5, bilirubin 2.1, lipase 129 urinalysis is within normal limits. Discussed CT results with patient who verbalized understanding. We will give first dose of Cipro here in the department. Patient is allergic to metronidazole. Patient discharged to home with follow-up with PCP with Cipro prescription sent to the pharmacy on file. Patient discharged after magnesium infusion complete. Remained hemodynamically stable alert and oriented and ambulatory throughout stay. This text was generated using [employer] system, please disregard any oddities of phrase or misspellings. HPI General Mode of arrival: ambulatory. Date/Time Provider Initiated Documentation: 11/05/20 12:25. Limitations to Documentation: no limitations. Information obtained by: patient. HPI Narrative: 60-year-old female presents to the ER chief complaint of left upper quadrant abdominal pain which began last night. Patient reports intermittent and crampy in nature. Associated with loose stools. Does have a history of uterine cancer which she is receiving radiation treatment for. She denies any fever chills no vomiting. Does endorse some nausea. Denies any bloody stools. Does have a history of diverticulitis and states that this pain feels similar. Patient has a past medical history of hypertension, high cholesterol, anxiety, GERD, surgical history includes cholecystectomy, hysterectomy tubal ligation. Related Data Home Medications Medication Instructions Recorded Confirmed hydrocodone-acetaminophen [Vicodin] 1 tab PO PRN PRN 06/25/16 11/05/20 lorazepam 0.5 mg PO PRN PRN 06/25/16 11/05/20 lisinopril 10 mg tablet 10 mg PO DAILY 05/23/19 11/05/20 methylphenidate HCl 18 mg 18 mg PO DAILY 05/23/19 11/05/20 tablet,extended release 24 hr metoprolol succinate 50 mg 50 mg PO DAILY 05/23/19 08/20/19 tablet,extended release 24 hr pravastatin 20 mg tablet 20 mg PO QHS 05/23/19 11/05/20 sitagliptin 25 mg tablet 25 mg PO DAILY 05/23/19 11/05/20 atenolol 40 mg PO DAILY 11/05/20 11/05/20 ciprofloxacin HCl 500 mg PO BID 10 Days #20 tab 11/05/20 gabapentin 100 mg PO PRN PRN 11/05/20 11/05/20 Previous Rx's Medication Instructions Recorded ciprofloxacin HCl 500 mg PO BID 10 Days #20 tab 11/05/20 Allergies Allergy/AdvReac Type Severity Reaction Status Date / Time Sulfa (Sulfonamide Allergy Severe Anaphylaxsi Unverified 11/05/20 12:23 Antibiotics) s fluconazole [From Diflucan] Allergy Unverified 11/05/20 12:23 Penicillins AdvReac Severe severe Unverified 11/05/20 12:23 yeast infections metronidazole AdvReac Mild Skin Rash Unverified 11/05/20 12:23 venlafaxine AdvReac Unknown Unverified 11/05/20 12:23 General Stated Complaint: Abd Prob CHANELLE: 3 Review of Systems All systems reviewed & are unremarkable except as noted in HPI and below Gastrointestinal Gastrointestinal: Reports abdominal pain (Left side), Reports change in bowel habits (Loose stools), Reports cramping, Reports nausea and Denies vomiting PFSH Medical History ADD (attention deficit disorder) Anxiety Chronic neck pain Cubital tunnel syndrome on left De Quervain's tenosynovitis, right Injection: 09/24/2019 Diabetes Endometrial adenocarcinoma Endometrial cancer Stage 1B. Grade2. S/P RALH, BSO, sentinel lymph node bx. 12/2015. Will have cuff radiation thru [facility] [place]. GERD (gastroesophageal reflux disease) Glucose intolerance (impaired glucose tolerance) History of IBS Hx of diverticulitis of colon Hyperlipidemia Hypertension Low back pain Migraine Osteoarthritis Shoulder impingement Skin lesion of face Surgical History Cholecystectomy Hysterectomy, Laproscopic (12/30/15) RALH, BSO, Rush lymph node bx. Pt will have cuff brachytherapy. Ligation of fallopian tube Family History Grandmother Essential hypertension Social History Smoking/Tobacco Use Status: Never Smoking risk assessment performed?: Yes Alcohol Intake: current Alcohol Intake frequency: a few times a month Drug use: Never Substance use type: does not use Household members: spouse Housing: house Number of Children: 4 current occupation: Therapist Pets and animals: No What is your relationship status?: Panel score (0-1 are the most socially isolated patients): 1 What type of physical activity do you participate in: walking Seatbelt use: always Do you feel safe at home: Yes Do you feel safe in your relationship?: Yes Exam Narrative Exam Narrative: Constitutional: Alert and oriented x3. Appears stated age. Normal body habitus. Head: Normocephalic, no trauma. Eyes: Pupils PERRLA, Red reflex noted, EOM's intact. Eyelids symmetrical without lesions, discharge, or swelling. ENT: Bilateral TM's WNL, External ear normal to inspection, no mastoid TTP, swelling, or erythema, Nasal turbinates WNL, no nasal discharge. Normal dentition, Posterior pharynx WNL, no exudate. Chest: RRR, Normal S1, S2, distal pulses intact. Resp: Lungs clear to auscultation bilaterally, no wheezes, rales, or rhonchi. Abdominal: Musculoskeletal: Normal gait, 5/5 strength to all four extremities. Skin: No suspicious rashes or lesions. Capillary refill less than 2 sec. Neurologic: Cranial nerves II-XII intact. Alert and oriented x 3. DTR's intact. Hematologic/Lymphatic: No ecchymosis, no lymphadenopathy. Course Vital Signs Vital signs: Vital Signs Temperature 36.6 C 11/05/20 12:18 Pulse 81 11/05/20 12:18 Respiratory Rate 18 11/05/20 12:18 Blood Pressure 155/64 H 11/05/20 12:18 Pulse Oximetry 99 11/05/20 12:18 Temperature 36.6 C 11/05/20 12:18 Temperature Source Temporal Artery Scan 11/05/20 12:18 Pulse 81 11/05/20 12:18 Respiratory Rate 18 11/05/20 12:18 Respiratory Effort Non-Labored 11/05/20 12:27 Blood Pressure 155/64 H 11/05/20 12:18 Blood Pressure Position Sitting 11/05/20 12:18 Pulse Oximetry 99 11/05/20 12:18 Oxygen Delivery Method Room Air 11/05/20 12:18 Oxygen Flow Rate 0 11/05/20 12:18
[2020-11-05 12:55] LABS: Bilirubin Negative (Negative); Blood Negative (Negative); Clarity Clear (Clear); Glucose Negative (Negative); Ketones Negative (Negative); Leukocyte Esterase Negative (Negative); Nitrite Negative (Negative); Specific Gravity 1.015 (1.005-1.025); Urobilinogen 0.2 EU/dL (Up TO 0.2); pH 5.5 (5-8)
[2020-11-05 13:02] LABS: Abs Immature Grans 0.04 10^3/uL (0.0-0.06); Absolute Basophil Count 0.02 10^3/uL (0.0-0.2); Absolute Eosinophil Count 0.19 10^3/uL (0.0-0.7); Absolute Lymphocyte Count 0.97 10^3/uL (1.2-3.4); Absolute Monocyte Count 0.56 10^3/uL (0.1-0.8); Absolute Neutrophil Count 3.42 10^3/uL (1.2-6.7); Basophils % 0.4; Eosinophils % 3.7; HCT 40.1 % (36.0-46.0); HGB 13.6 g/dL (11.2-15.7); Immature Grans % 0.8; Lymphocytes % 18.7; MCH 29.1 pg (27.0-33.0); MCHC 33.9 % (32.0-36.0); MCV 85.7 fL (80-95); MPV 10.1 fL (8.0-11.0); Monocytes % 10.8; Neutrophils % 65.6; Nucleated RBC 0 %; Platelet Count 107 10^3/uL (130-400); RBC 4.68 10^6/uL (3.93-5.22); RDW 13.6 % (11.7-14.6); RDW-SD 42.1 fL
[2020-11-05] MEDS: Normal Saline 500 ML 999 ML IV (13:10)
[2020-11-05 13:22] LABS: ALT 58 U/L (14-59); AST 54 U/L (15-37); Albumin 4.2 g/dL (3.4-5.0); Alkaline Phosphatase 116 U/L (46-116); Anion Gap 8.2 mmol/L (3-11); BUN 10 mg/dL (7-18); Bilirubin, Total 2.1 mg/dL (0.2-1.0); CO2 27.8 mmol/L (21.0-32.0); CREATININE 0.6 mg/dL (0.55-1.02); Calcium 9.7 mg/dL (8.5-10.1); Chloride 103 mmol/L (98-107); Glucose 133 mg/dL (74-106); Lipase 129 U/L (73-393); Potassium 3.9 mmol/L (3.5-5.1); Sodium 139 mmol/L (136-145); Total Protein 8.1 g/dL (6.4-8.2)
[2020-11-05 13:23] LABS: Magnesium 1.5 mg/dL (1.8-2.4)
[2020-11-05] MEDS: Omnipaque 350 MG/ML 50 ML BTL PO (14:09)
[2020-11-05] MEDS: Breeza Beverage 473 ML BTL PO (14:09)
[2020-11-05] MEDS: Omnipaque 350 MG/ML 100 ML BTL IV (14:10)
[2020-11-05] MEDS: MAGNESIUM SULFATE 1 GM/100 ML BAG IVPB (14:55)
[2020-11-05] MEDS: Ciprofloxacin 500 MG TAB PO (15:42)
[2020-11-05 15:53] VITALS: BP 144/56; PULSE 86; TEMP 36.6; O2SAT 100
== END 2020-11-05 16:10 | disposition home or self-care (01) ==
PROVIDERS: Emergency Provider Registered Nurse Emergency; PCP Nurse Practitioner
DX: K57.32 Diverticulitis of large intestine without perforation or abscess without bleeding (principal); R10.12 Left upper quadrant pain; R11.0 Nausea
CPT/HCPCS: 36415; 80053; 83690; 96361; 96365; 99285; 74177; 81003; 83735; 85025; J3475; J3490; Q9967

== ENCOUNTER 2020-11-20 03:03 | Outpatient (CLI) | payer BC, SELFPAY ==
[2020-11-20 10:12] LABS: Abs Immature Grans 0.05 10^3/uL (0.0-0.06); Absolute Basophil Count 0.03 10^3/uL (0.0-0.2); Absolute Eosinophil Count 0.21 10^3/uL (0.0-0.7); Absolute Lymphocyte Count 0.37 10^3/uL (1.2-3.4); Absolute Monocyte Count 0.35 10^3/uL (0.1-0.8); Absolute Neutrophil Count 2.65 10^3/uL (1.2-6.7); Basophils % 0.8; Eosinophils % 5.7; HCT 36.5 % (36.0-46.0); HGB 12.3 g/dL (11.2-15.7); Immature Grans % 1.4; Lymphocytes % 10.1; MCH 29.3 pg (27.0-33.0); MCHC 33.7 % (32.0-36.0); MCV 86.9 fL (80-95); MPV 9.7 fL (8.0-11.0); Monocytes % 9.6; Neutrophils % 72.4; Nucleated RBC 0 %; Platelet Count 101 10^3/uL (130-400); RDW-SD 46.2 fL; WBC 3.66 10^3/uL (4.4-10.8)
[2020-11-20 10:13] LABS: Bilirubin Negative (Negative); Blood Negative (Negative); Clarity Clear (Clear); Glucose Negative (Negative); Ketones Negative (Negative); Leukocyte Esterase Negative (Negative); Nitrite Negative (Negative); Urobilinogen 0.2 EU/dL (Up TO 0.2)
== END 2020-11-20 03:04 | disposition home or self-care (01) ==
LOC: LBO 03:03
PROVIDERS: PCP Nurse Practitioner; Visit Provider Radiology Radiation Oncology
DX: C54.1 Malignant neoplasm of endometrium (principal); R30.0 Dysuria
CPT/HCPCS: 36415; 81003; 85025

== ENCOUNTER 2020-12-09 04:07 | Outpatient (CLI) | payer BC, SELFPAY ==
[2020-12-09 13:23] LABS: Abs Immature Grans 0.03 10^3/uL (0.0-0.06); Absolute Basophil Count 0.02 10^3/uL (0.0-0.2); Absolute Eosinophil Count 0.11 10^3/uL (0.0-0.7); Absolute Lymphocyte Count 0.44 10^3/uL (1.2-3.4); Absolute Monocyte Count 0.44 10^3/uL (0.1-0.8); Basophils % 0.6; Eosinophils % 3.2; HCT 33.2 % (36.0-46.0); HGB 11.2 g/dL (11.2-15.7); Immature Grans % 0.9; Lymphocytes % 12.8; MCH 30.1 pg (27.0-33.0); MCHC 33.7 % (32.0-36.0); MCV 89.2 fL (80-95); MPV 9.8 fL (8.0-11.0); Monocytes % 12.8; Neutrophils % 69.7; Nucleated RBC 0 %; RBC 3.72 10^6/uL (3.93-5.22); RDW 16.2 % (11.7-14.6); RDW-SD 52.2 fL; WBC 3.45 10^3/uL (4.4-10.8)
[2020-12-09 13:37] LABS: Basophilic Stippling Present; Diff Comment Diff Reviewed; Platelet Count 93 10^3/uL (130-400); Polychromasia Present
== END 2020-12-09 04:08 | disposition home or self-care (01) ==
LOC: LBO 04:07
PROVIDERS: PCP Nurse Practitioner; Visit Provider Radiology Radiation Oncology
DX: C54.1 Malignant neoplasm of endometrium (principal)
CPT/HCPCS: 36415; 85025

== ENCOUNTER 2021-04-14 16:41 | Outpatient (REF) | payer BC, SELFPAY ==
[2021-04-14 19:06] LABS: HCT 39.7 % (36.0-46.0); HGB 12.6 g/dL (11.2-15.7); MCH 29.2 pg (27.0-33.0); MCHC 31.7 % (32.0-36.0); MCV 92.1 fL (80-95); MPV 10.9 fL (8.0-11.0); Platelet Count 129 10^3/uL (130-400); RBC 4.31 10^6/uL (3.93-5.22); RDW 14.4 % (11.7-14.6); RDW-SD 48.6 fL; WBC 4.19 10^3/uL (4.4-10.8)
[2021-04-14 19:30] LABS: Hemoglobin A1C 5.9 % (<5.7)
[2021-04-14 19:37] LABS: ALT 41 U/L (14-59); AST 49 U/L (15-37); Alkaline Phosphatase 119 U/L (46-116); Anion Gap 8.8 mmol/L (3-11); BUN 12 mg/dL (7-18); Bilirubin, Total 1.6 mg/dL (0.2-1.0); CO2 28.2 mmol/L (21.0-32.0); CREATININE 0.5 mg/dL (0.55-1.02); Calcium 9.1 mg/dL (8.5-10.1); Calculated LDL 106 mg/dL (<100); Chloride 106 mmol/L (98-107); Cholesterol 176 mg/dL (<200); Glucose 176 mg/dL (74-106); HDL Cholesterol 38 mg/dL (40-60); Potassium 4.1 mmol/L (3.5-5.1); Sodium 143 mmol/L (136-145); Triglyceride 162 mg/dL (<150)
== END 2021-04-14 16:42 | disposition home or self-care (01) ==
LOC: NCHCN 16:41
PROVIDERS: PCP Nurse Practitioner; Visit Provider Nurse Practitioner Family
DX: E11.9 Type 2 diabetes mellitus without complications (principal); E78.5 Hyperlipidemia, unspecified; I10 Essential (primary) hypertension; F41.9 Anxiety disorder, unspecified
CPT/HCPCS: 80053; 80061; 85027; 83036

== ENCOUNTER 2021-05-12 15:53 | Outpatient (REF) | payer BC, SELFPAY ==
[2021-05-12 15:37] LABS: COMMENT (LAB VIEW ONLY) 153.53 mg/dL; Microalb ug/mg Crea 56.5 ug/mg Cr
== END 2021-05-12 15:54 | disposition home or self-care (01) ==
LOC: NCHCN 15:53
PROVIDERS: PCP Nurse Practitioner; Visit Provider Nurse Practitioner Family
DX: E11.9 Type 2 diabetes mellitus without complications (principal)
CPT/HCPCS: 82043; 82570

== ENCOUNTER → 2021-07-03 00:45 | Outpatient (CLI) | payer BC, SELFPAY | PROVIDERS: PCP Nurse Practitioner; Visit Provider Nurse Practitioner Family ==